=== PATIENT | female | born 1995 | race American Indian/Alaskan Native ===

== ENCOUNTER 2019-07-21 12:47 | Emergency (ER) | payer SELFPAY ==
[2019-07-21 13:01] VITALS: BP 116/74
[2019-07-21] MEDS ORDERED: IBUPROFEN 800 MG TAB PO ONE (14:47)
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
== END 2019-07-21 15:22 | disposition home or self-care (01) ==
LOC: ED 12:47
DX: S06.0X9A Concussion with loss of consciousness of unspecified duration, initial encounter (principal); V89.2XXA Person injured in unspecified motor-vehicle accident, traffic, initial encounter; Y93.89 Activity, other specified; Y92.89 Other specified places as the place of occurrence of the external cause; Y99.8 Other external cause status
CPT/HCPCS: 99282